=== PATIENT | male | born 1970 | race African-American/Black ===

== ENCOUNTER 2019-08-24 17:54 | Inpatient (IN) | payer OTHER ==
[~2019-08-24] VITALS: Ht 172.7 cm; Wt 142.3 kg
[2019-08-24 17:57] VITALS: BP 121/79
[2019-08-24] MEDS ORDERED: CARVEDILOL12.5 MG PO (18:11)
[2019-08-24] MEDS ORDERED: LASIX 40 MG TAB40 MG PO (18:11)
[2019-08-24] MEDS ORDERED: LASIX 40 MG TAB40 M2 PO (18:12)
[2019-08-24 19:07] LABS: HEMATOCRIT 41.6 % (42.0-52.0); HEMOGLOBIN 13.5 gm/dL (14.0-18.0); MCH 34.3 pg (26.0-34.0); MCHC 32.5 g/dL (28.0-37.0); MCV 105.5 fL (80.0-100.0); PLATELET COUNT 187 thou/uL (150-400); RBC 3.94 mil/uL (4.50-6.00); RDW 14.8 % (10.5-14.5); WBC 4.1 thou/uL (4.0-11.0)
[2019-08-24 19:14] LABS: CALCIUM 9.5 mg/dL (8.5-10.1); CREATININE 1.8 mg/dL (0.7-1.3); POTASSIUM 3.6 mmol/L (3.5-5.1)
[2019-08-24 19:19] LABS: ALBUMIN 3.3 g/dL (3.4-5.0); DIRECT BILIRUBIN 2.2 mg/dL (<0.1-0.3); TOTAL BILIRUBIN 2.9 mg/dL (<0.1-1.0)
[2019-08-24 19:39] LABS: ABSOLUTE NEUTROPHILS 2.3 thou/uL (1.4-8.2); ANISOCYTOSIS 1+
[2019-08-24 19:45] LABS: URINE BILIRUBIN NEGATIVE (Negative); URINE BLOOD NEGATIVE (Negative); URINE CLARITY CLEAR; URINE COLOR YELLOW; URINE GLUCOSE-RANDOM* NEGATIVE (Negative); URINE KETONES NEGATIVE (Negative); URINE LEUKOCYTES-REFLEX NEGATIVE (Negative); URINE NITRITE-REFLEX NEGATIVE (Negative); URINE PROTEIN (DIPSTICK) NEGATIVE (Negative); URINE UROBILINOGEN 0.2 E.U./dl (0.2-1.0)
[2019-08-24 22:05] VITALS: BP 119/74
[2019-08-24 22:47] VITALS: BP 103/67
[2019-08-24 23:48] VITALS: BP 141/97
[2019-08-25 04:45] VITALS: BP 90/59
--- NOTE | 2019-08-25 05:12 | NUR ---
PT IS AN ER ADMIT. HE CAME WITH PITTING EDEMA. PT IS STABLE ON 5L NC AT HOME. NO FAMILY AT BEDSIDE. ADMISSION ASSESSMENT AND EDUCATION COMPLETED. NO SIGN OF DISTRESS NOTED. PT IS ALERT AND ORIENTED. PT IS STABLE. SCHEDULED MEDS ADMINISTERED TO PT. DENIES ANY FURTHER NEEDS AT THIS TIME.
[2019-08-25 07:04] LABS: HEMATOCRIT 39.6 % (42.0-52.0); HEMOGLOBIN 12.9 gm/dL (14.0-18.0); MCH 34.5 pg (26.0-34.0); MCHC 32.6 g/dL (28.0-37.0); MCV 105.9 fL (80.0-100.0); RBC 3.74 mil/uL (4.50-6.00); RDW 15.1 % (10.5-14.5); WBC 4.4 thou/uL (4.0-11.0)
[2019-08-25 07:31] LABS: ALBUMIN 3.1 g/dL (3.4-5.0); CALCIUM 9.1 mg/dL (8.5-10.1); CREATININE 1.8 mg/dL (0.7-1.3); DIRECT BILIRUBIN 1.9 mg/dL (<0.1-0.3); POTASSIUM 3.5 mmol/L (3.5-5.1); TOTAL BILIRUBIN 2.7 mg/dL (<0.1-1.0); TOTAL PROTEIN 7.3 g/dL (6.4-8.2)
[2019-08-25 08:00] VITALS: BP 124/84
--- NOTE | 2019-08-25 09:15 | 2DMMODE ---
[facility] [address] [place] [address] 2 D/M-MODE ECHOCARDIOGRAM Name: JERALD BANKS Room #: 211-P [facility] IN .R.#: [id number] Admission: 08/24/19 Attend Phys: Sofy Vega, Discharge: Date of : 68 Report #: [id number] THIS REPORT FOR: //name// APPROVED REPORT Study performed: 08/25/2019 08:08:51 EXAM: Comprehensive 2D, Doppler, and color-flow Echocardiogram Patient Location: Bedside Room #: 211 Status: routine BSA: 2.47 HR: 83 bpm BP: 90/59 mmHg Rhythm: NSR Other Information Study Quality: Technically Difficult Technically limited study due to body habitus, inability to position patient. Indications Congestive Heart Failure COPD CAD Hypertension/HDD Echo Enhancing Agent Indication: Endocardial border delineation Agent(s) / Amount(s) Used: Optison 3 cc 2D Dimensions RVDd: 60.98 mm IVSd: 14.86 (7-11mm) LVOT Diam: 18.91 (18-24mm) LVDd: 51.10 mm PWd: 13.80 (7-11mm) Ascending Ao: 28.01 (22-36mm) LVDs: 33.67 (25-40mm) Aortic Root: 32.59 mm Volumes Left Atrial Volume (Systole) Single Plane 4CH: 26.14 mL Single Plane 2CH: 28.48 mL LA ESV Index: 14.00 mL/m2 Aortic Valve [facility] [address] [place] [address] 2 D/M-MODE ECHOCARDIOGRAM Name: DARRENJERALD Room #: 211-P [facility] IN M.R.#: [id number] Admission: 08/24/19 Attend Phys: Sofy Vega, Discharge: Date of : 68 Report #: [id number] AoV Peak Jean.: 0.90 m/s AO Peak Gr.: 3.27 mmHg LVOT Max P.28 mmHg LVOT Max V: 0.56 m/s MARILEE Vmax: 1.75 cm2 Mitral Valve E/A Ratio: 1.2 MV Decel. Time: 211.30 ms MV E Max Jean.: 0.46 m/s MV A Jean.: 0.38 m/s MV PHT: 61.28 ms IVRT: 110.73 ms Pulmonary Valve PV Peak Jean.: 0.66 m/s PV Peak Gr.: 1.72 mmHg Pulmonary Vein P Vein S: 0.29 m/s P Vein A: 0.14 m/s P Vein D: 0.37 m/s P Vein A Dur.: 101.5 msec P Vein S/D Ratio: 0.78 Tricuspid Valve TR Peak Jean.: 3.93 m/s TR Peak Gr.: 61.92 mmHg Left Ventricle The left ventricle is normal size. Moderate concentric left ventricular hypertrophy. Left ventricular systolic function is mildl-mod decreased. LVEF is 35-40% Transmitral Doppler flow pattern suggests pseudonormalization. Right Ventricle Right ventricle is severely dilated. Right ventricle is hypokinetic. Atria The left atrium size is normal. Right atrium is severely dilated. Aortic Valve The aortic valve is normal in structure. No aortic regurgitation is present. There is no aortic valvular stenosis. Mitral Valve The mitral valve is normal in structure. There is no mitral valve regurgitation noted. No evidence of mitral valve stenosis. [facility] [place] [address] 2 D/M-MODE ECHOCARDIOGRAM Name: JERALD BANKS Room #: 211-P ADM IN M.R.#: [id number] Admission: 08/24/19 Attend Phys: Sofy Vega, Discharge: Date of : 68 Report #: [id number] Tricuspid Valve The tricuspid valve is normal in structure. Severe tricuspid regurgitation. PAP is estimated at 70-80mmhg Pulmonic Valve The pulmonary valve is normal in structure. Mild to moderate pulmonic regurgitation. Great Vessels The aortic root is normal in size. The inferior vena cava is not visualized. Pericardium Trace anterior pericardial effusion. <Conclusion> The left ventricle is normal size. Moderate concentric left ventricular hypertrophy. Left ventricular systolic function is mildl-mod decreased. LVEF is 35-40% Transmitral Doppler flow pattern suggests pseudonormalization. Right ventricle is severely dilated. Right ventricle is hypokinetic. Right atrium is severely dilated. The aortic valve is normal in structure. There is no mitral valve regurgitation noted. Severe tricuspid regurgitation. PAP is estimated at 70-80mmhg Mild to moderate pulmonic regurgitation. The aortic root is normal in size. Trace anterior pericardial effusion. <ELECTRONICALLY SIGNED> By: Salvador Healy MD, FACC 08/25/19914 4 4 Salvador Healy MD, FACC /INF
--- NOTE | 2019-08-25 17:05 | NUR ---
PT ALERT AND ORIENTED. REFUSED HIS VITAL TO BE TAKEN. NOT HAPPY BEING ON FLUID RESTRICTION. PT STATED WANTED TO LEAVE AMA IF HE IS ON FLUID RESTRICTION. DR. ESCALERA NOTIFIED. SOB NOTED WITH ACTIVITY. WILL CONTINUE TO MONITOR.
[2019-08-25 19:23] VITALS: BP 102/61
[2019-08-25 19:31] VITALS: BP 102/61
[2019-08-26 04:00] VITALS: BP 98/71
--- NOTE | 2019-08-26 05:03 | NUR ---
ASSUMED PT CARE AT 1900. PT IS ALERT AND ORIENTED. PT IS LAYING IN BED. NO SIGN OF DISTRESS NOTED. ASSESSMENT COMPLETED AND DOCUMENTED. SCHEDULED MEDS ADMINISTERED TO PT. PT IS ON OXYGEN. PT SLEEPS COMFORATBLE THROUGHPUT THE NIGHT. DENIES ANY FURTHER NEEDS AT THIS TIME.
[2019-08-26 11:02] LABS: CREATININE 1.8 mg/dL (0.7-1.3); POTASSIUM 3.5 mmol/L (3.5-5.1)
[2019-08-26 12:27] VITALS: BP 123/84
[2019-08-26 16:00] VITALS: BP 102/65
--- NOTE | 2019-08-26 16:53 | NUR ---
PT ALERT AND ORIENTED. COMPLIANT WITH FLUID RESTRICTION THIS SHIFT. DENIED HAVING PAIN. SOB NOTED WITH ACTIVITY. CHECKED FREQUENTLY AND NEEDS MET. WILL CONTINUE TO MONITOR.
[2019-08-26 20:15] VITALS: BP 104/69
[2019-08-27 00:30] VITALS: BP 105/62
--- NOTE | 2019-08-27 03:51 | NUR ---
ASSESSMENT CHARTED. VSS. PT AGITATED ABOUT FLUID RESTRICTION. PT EDUCATED AND HE AGREED TO TRY TO STICK TO RESTRICTION TONIGHT. STEADY TO BATHROOM. WILL CONTINUE TO MONITOR AND WITH POC.
[2019-08-27 04:45] VITALS: BP 116/77
[2019-08-27 04:45] LABS: CALCIUM 8.7 mg/dL (8.5-10.1); CREATININE 1.6 mg/dL (0.7-1.3); POTASSIUM 3.4 mmol/L (3.5-5.1)
[2019-08-27 08:48] VITALS: BP 156/90
--- NOTE | 2019-08-27 09:05 | EKG ---
[address] [place] [address] ELECTROCARDIOGRAM REPORT Name: JERALD BANKS Room #: 211-P ADM IN M.R.#: [id number] Admission: 08/24/19 Attend Phys: Zeferino Galan MD Discharge: Date of : 68 Report #: [id number] THIS REPORT FOR: //name// [facility] Test Date: 2019-08-25 Test Time: 09:39:10 Pat Name: JERALD BANKS Department: Room: 211 P Gender: M Supply Service Worker: FRANCIS : 1970 Requested By: Salvador Healy Order Number: [id number] MD: Rex Acosta Measurements Intervals [place] Rate: 80 P: 64 AL: 165 QRS: 122 QRSD: 125 T: -45 QT: 420 QTc: 485 Interpretive Statements Sinus rhythm Right ventricular hypertrophy Compared to ECG 10/22/2008 08:17:35 Prolonged QT interval no longer present T-wave abnormality still present Electronically Signed On 08-27-2019 9:04:52 CDT by Rex Acosta [email or web address] <ELECTRONICALLY SIGNED> By: Rex Acosta MD, [facility] 08/27/19903 8 8 Rex Acosta MD, FAC /EPI
[2019-08-27] MEDS ORDERED: ELIQUIS5 MG PO (11:06)
[2019-08-27] MEDS ORDERED: SPIRONOLACTONE25 M1 PO (11:07)
[2019-08-27] MEDS ORDERED: DEMADEX20 MG PO (11:08)
[2019-08-27 11:25] VITALS: BP 123/91
--- NOTE | 2019-08-27 12:36 | NUR ---
ASSESSMENT CHARTED. PT ALERT AND ORIENTED. VSS. DENIED HAVING PAIN OR DISCOMFORT. SEEN BY DR. ESCALERA AND DR. STOKES. ORDERS GIVEN TO DISCHARGE PT TO HOME. DISCHARGE INSTRUCTIIONS GIVEN TO PT. PT VERBERLIZED UNDERSTANDING.
--- NOTE | 2019-08-28 08:39 | HC ---
[facility] [address] [place] [address] CONSULTATION Name: JERALD BANKS Room #: [facility] [place] [facility] [place] IN M.R.#: [id number] Admission: 08/24/19 Attend Phys: Zeferino Galan MD Discharge: 08/27/19 Date of : 68 Report #: [id number] THIS REPORT FOR: //name// CC: [facility] physician/PCP Sofy Vega REASON FOR CONSULTATION: Elevated creatinine. REASON FOR PRESENTATION: Significant lower extremity swelling, weight gain, and genital swelling. HISTORY OF PRESENT ILLNESS: A 49-year-old with advanced cardiomyopathy and ejection fractions of around 30%. He is also known to have hypertension, COPD, coronary artery disease post-stent back in 2017 at [place]. He has severe pulmonary hypertension with a PA pressure in the 70s. He had been complaining of increasing abdominal pain, testicular swelling, and lower extremity swelling. He visited with his primary care physicians on many times and his Lasix dose has been escalated without any improvement in his weight or his lower extremity swelling. He denies any chest pain; however, he has some shortness of breath. He came to the hospital for further evaluation and was found to have a creatinine of 1.8. He tells me that he was told about his kidney problems at [facility], but he never followed up with the milk wagon driver. He is not known to have previous history of hematuria or proteinuria as he stated. He is currently being diuresed with a stable creatinine at 1.8. PAST MEDICAL HISTORY: 1. Hypertension. 2. Coronary artery disease. 3. Severe pulmonary hypertension. 4. COPD. ALLERGIES: None. MEDICATIONS: 1. Carvedilol. 2. Lasix 80 mg in the morning and 40 mg at night. REVIEW OF SYSTEMS: GENERAL: Significant for tiredness and weakness. CARDIOVASCULAR: No chest pain or palpitation, but significant for lower extremity swelling. PULMONARY: Significant for shortness of breath. GASTROINTESTINAL: No nausea or vomiting. GENITOURINARY: Significant for testicular swelling. SKIN: No rash or ulcerations. NEUROLOGICAL: No headache. No dizziness. [facility] [address] [place] [address] CONSULTATION Name: JERALD BANKS Room #: 211-P [facility] IN M.R.#: [id number] Admission: 08/24/19 Attend Phys: Zeferino Galan MD Discharge: 08/27/19 Date of : 68 Report #: [id number] FAMILY HISTORY: Significant for hypertension. PHYSICAL EXAMINATION: GENERAL: He is alert, oriented, and in no apparent distress. VITAL SIGNS: Temperature was 36.3 and blood pressure was 102/61. HEAD AND NECK: No jugular venous distention. CHEST: No crackles, but decreased air entry bilaterally. CARDIOVASCULAR: No rub detected, distant S1 and S2. ABDOMEN: Soft and nontender with no hepatosplenomegaly, but significant abdominal wall edema. GENITOURINARY: Significant testicular edema. EXTREMITIES: Lower extremity, significant edema. LABORATORY VALUES: Reviewed. BUN is 42 and creatinine is 1.8. Hemoglobin A1c is 6. Hemoglobin is 12.9. ____ completely not remarkable. IMPRESSION AND PLAN: 1. Anasarca due to a right-sided heart failure with significant cor pulmonale. 2. Coronary artery disease. 3. Chronic obstructive pulmonary disease and obstructive sleep apnea. 4. Severe pulmonary hypertension. 5. Chronic kidney disease. 6. Agree with the current diuretic regimen. 7. Salt restrictions. 8. Needs addressing his pulmonary hypertension with aggressive control of his pulmonary issues to better serve his overall health condition. <ELECTRONICALLY SIGNED> By: Janie Shelton MD 08/28/19 0839 [id number] [id number] Janie Shelton MD /nt
[2019-08-29 19:10] LABS: ANA INTERPRETATION Negative (())
== END 2019-08-27 12:39 | disposition home or self-care (01) | DRG 291 ==
LOC: ER 17:54 → 2N 21:03 → EROBS 21:03 → 2N 22:45 → ENTRNSPT 08-27 12:22 → EDTRNSPTSTS 08-27 12:28 → 2N 08-27 12:39
PROVIDERS: Emergency Medicine; Internal Medicine Cardiovascular Disease; Nurse Practitioner Family; ADMIT Internal Medicine
DX: I13.0 Hypertensive heart and chronic kidney disease with heart failure and stage 1 through stage 4 chronic kidney disease, or unspecified chronic kidney disease (principal); I50.23 Acute on chronic systolic (congestive) heart failure; J96.21 Acute and chronic respiratory failure with hypoxia; I26.99 Other pulmonary embolism without acute cor pulmonale; N17.9 Acute kidney failure, unspecified; I31.3 Pericardial effusion (noninflammatory); Z68.42 Body mass index [BMI] 45.0-49.9, adult; I42.9 Cardiomyopathy, unspecified; I25.10 Atherosclerotic heart disease of native coronary artery without angina pectoris; I27.20 Pulmonary hypertension, unspecified; I27.81 Cor pulmonale (chronic); G47.33 Obstructive sleep apnea (adult) (pediatric); N18.9 Chronic kidney disease, unspecified; E66.01 Morbid (severe) obesity due to excess calories; E78.5 Hyperlipidemia, unspecified; Z60.2 Problems related to living alone; R79.89 Other specified abnormal findings of blood chemistry; I08.8 Other rheumatic multiple valve diseases; J43.9 Emphysema, unspecified; Z95.5 Presence of coronary angioplasty implant and graft; Z79.899 Other long term (current) drug therapy; Z91.19 Patient's noncompliance with other medical treatment and regimen; Z82.49 Family history of ischemic heart disease and other diseases of the circulatory system
CPT/HCPCS: 10081